=== PATIENT | male | born 1995 | race Caucasian/White ===

== ENCOUNTER 2023-05-21 23:08 | Inpatient (IN) | payer OTHER, SELFPAY ==
--- NOTE | ~2023-05-21 | CT_ITS ---
EXAMINATION: CT abdomen pelvis w con DATE: 05/22/2023 04:10 INDICATION: Pancreatitis. TECHNIQUE: Computed tomography (CT) of the abdomen and pelvis was performed with 100 mL Omnipaque 350 intravenous contrast. Automated exposure control and iterative reconstruction technique were employe d. The dose-length product was 1650.01 mGy-cm. COMPARISON: None. FINDINGS: The visualized portions of the lung bases demonstrate mild atelectasis. No pleural effusion . The heart size is normal. No pericardial effusion. The liver, gallbladder, spleen, adrenal glands, and kidneys are normal. There is fat stranding around the pancreas, consistent with acute interstitia l pancreatitis. There are no dilated loops of bowel. There are changes of appendectomy. There are no pathologically enlarged lymph nodes. There is a small volume of pelvic ascites. There is mild thoraci c and lumbar spondylosis. There are chronic bilateral L3 pars defects. IMPRESSION: 1. Acute interstitial pancreatitis. 2. Small volume of pelvic ascites. Reviewed, dictated and finalized at location [facility].
--- NOTE | 2023-05-21 23:10 | ECG_ITS ---
Measurements Intervals [place] Rate: 113 P: 48 OR: 178 QRS: 48 QRSD: 90 T: 59 QT: 295 QTc: 405 Interpretive Statements SINUS TACHYCARDIA BASELINE ARTIFACT- I, II ABNORMAL ECG NO PREVIOUS ECG AVAILABLE FOR COMPARISON Electronically Signed On 05-22-2023 8:02:19 CDT by Bird Whitlock D.O.
[2023-05-21 23:11] VITALS: BP 131/71; PULSE 118; RESP 14; TEMP 36.4; O2SAT 100
[2023-05-22] VITALS (7 sets, daily range): BP systolic 105–129; BP diastolic 54–65; PULSE 85–107; RESP 16–18; TEMP 36.1; O2SAT 98–100; BMI 35.3
[2023-05-22] MEDS: ACETAMINOPHEN 500 MG TABLET 1000 MG PO (02:11)
[2023-05-22] MEDS: MAG HYDROX/AL HYDROX/SIMETH 30 ML UDC PO (02:11)
[2023-05-22] MEDS: SODIUM CHLORIDE 0.9% IV 2,000 ML 999 ML IV CONT (02:11)
[2023-05-22] MEDS: FAMOTIDINE 20 MG/2 ML VIAL IV PUSH (02:12)
[2023-05-22] MEDS: ONDANSETRON INJ 4 MG/2 ML VIAL IV PUSH (02:12)
[2023-05-22] MEDS: KETOROLAC 15 MG/ML VIAL (*BKC) IV PUSH (02:13)
[2023-05-22 02:25] LABS: Basophils Percent Auto 0.3 % (0.2-1.2); Eosinophils Absolute Auto 0.5 K/mm3 (0-0.3); Eosinophils Percent Auto 4.1 % (0-4.4); Hemoglobin 15.3 g/dL (14.0-18.0); Immature Granulocyte Absolute 0.04 K/mm3 (0.00-0.031); Immature Granulocyte Percent A 0.3 % (0-0.5); Lymphocytes Absolute Auto 2.59 K/mm3 (0.9-3.2); Lymphocytes Percent Auto 20.8 % (18.3-44.2); Mean Corpuscular HGB Conc 31.9 g/dl (32-36); Mean Corpuscular Hemoglobin 29.2 pg (26-34); Mean Corpuscular Volume 91.6 fl (80-100); Mean Platelet Volume 9.6 fl (7.4-10.4); Monocytes Absolute Auto 0.7 K/mm3 (0.1-0.6); Monocytes Percent Auto 5.4 % (2.6-8.5); Neutrophils Absolute Auto 8.6 K/mm3 (1.3-6.7); Neutrophils Percent Auto 69.1 % (45.5-73.1); Platelet Count Result 408 k/mm3 (150-375); Red Blood Count 5.24 M/mm3 (4.6-6.20); Red Cell Distribution Width 13.4 % (11.5-14.5); White Blood Count 12.5 K/mm3 (4.5-10.0)
[2023-05-22 02:41] LABS: Alanine Aminotransferase 297 U/L (6-50); Albumin Level 4.5 g/dL (3.5-5.1); Alkaline Phosphatase 169 U/L (38-126); Anion Gap 6 mmol/L (8-16); Aspartate Amino Transferase 44 U/L (17-59); Bilirubin,Total 0.7 mg/dL (0.2-1.3); Blood Urea Nitrogen 21 mg/dL (9-20); Calcium 9.2 mg/dL (8.4-10.2); Carbon Dioxide 30 mmol/L (22-30); Chloride 102 mmol/L (98-107); Estimated CRCL calculation 157 ml/min; Estimated Glomerular Filt Rate > 60; Glucose 135 mg/dL (65-110); Potassium 4.1 mmol/L (3.4-5.0); Sodium 138 mmol/L (137-145)
[2023-05-22 02:45] LABS: Lipase 2432 U/L (23-300)
--- NOTE | 2023-05-22 03:03 | ED.GENADULT ---
HPI - General Adult General Chief complaint: Abdominal Pain Stated complaint: epigastric pain Time Seen by Provider: 05/22/23 01:16 History of Present Illness HPI narrative: this is a 27-year-old male presenting ED with chief complaint of abdominal pain. Patient says he has been having 3 days of epigastric abdominal pain that radiates into his chest. He describes as a stabbing pain that is 10 out 10 intensity and constant. He says he felt this before several years ago he was diagnosed with gallstone pancreatitis at an outside hospital but declined any surgeries. Patient has had multiple episodes of nausea and vomiting. He denies fever chills chest pain difficulty breathing or urinary symptoms. Last bowel movement was earlier today. Related Data Allergies Allergy/AdvReac Type Severity Reaction Status Date / Time No Known Drug Allergies Allergy Mild Verified 11/26/10 23:46 [facility] Past Medical History Medical History Appendicitis Methamphetamine use Pancreatitis Exam Narrative: APPEARANCE: No apparent distress. Head: atraumatic. EYES: EOMI, NOSE: Atraumatic NECK: Trachea midline RESPIRATORY: No increased rate of breathing CARDIOVASCULAR: RRR, ABDOMINAL: Tenderness to palpation in the epigastric area without guarding or rebound. Point of care right upper quadrant ultrasound revealed a depressed gallbladder with negative sonographic Petty's. MUSCULOSKELETAl: No obvious deformities NEURO: Alert. Moving 4/4 extremities SKIN:: Warm, dry. Normal color PSYCHIATRIC: Normal affect Course Vital Signs Vital signs: Vital Signs Temperature 97.6 F 05/21/23 23:11 Pulse Rate 118 H 05/21/23 23:11 Respiratory Rate 14 05/21/23 23:11 Blood Pressure 131/71 05/21/23 23:11 Pulse Oximetry 100 05/21/23 23:11 Oxygen Delivery Room Air 05/21/23 23:11 Temperature 97.6 F 05/21/23 23:11 Pulse Rate 118 H 05/21/23 23:11 Respiratory Rate 14 05/21/23 23:11 Blood Pressure 131/71 05/21/23 23:11 Pulse Oximetry 100 05/21/23 23:11 Oxygen Delivery Room Air 05/21/23 23:11 Medical Decision Making MDM Narrative Medical decision making narrative: -Course: 27-year-old male with history of pancreatitis presenting with epigastric pain. Lab work was significant for an elevated lipase, ALT and alk-phos. No US available overnight. CT abdomen/pelvis has been taken and is pending final read. Patient will be admitted to the hospital for further management. 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 -Hx from independent Sources: girlfriend at bedside -Independent interpretation of studies: white count 12.5. AST 44 ALT 297, alk phos 169, lipase 2400 Independent EKG interpretation: Rhythm [sinus], Rate 113, [place] -[normal], [place] -[normal], QRS [narrow], QTC [normal], T waves -[negative for concerning inversions], ST Segments - [Negative for concerning elevations] Final interpretations: [Normal Sinus Rhythm] -Discussion of Management/Consultants: Josh - Hospitalist -Interventions: 2 L normal saline, Pepcid, Zofran, Maalox, Dilaudid, Toradol, Tylenol, 200 cc normal saline maintenance -Shared decision making / Disposition: admitted Vital Signs Vital Signs: Vital Signs Temperature 97.6 F 05/21/23 23:11 Pulse Rate 118 H 05/21/23 23:11 Respiratory Rate 14 05/21/23 23:11 Blood Pressure 131/71 05/21/23 23:11 Pulse Oximetry 100 05/21/23 23:11 Oxygen Delivery Room Air 05/21/23 23:11 Temperature 97.6 F 05/21/23 23:11 Pulse Rate 118 H 05/21/23 23:11 Respiratory Rate 14 05/21/23 23:11 Blood Pressure 131/71 05/21/23 23:11 Pulse Oximetry 100 05/21/23 23:11 Ox
[2023-05-22] MEDS: HYDROmorphone HCL INJ (*CRX) 1 MG/ML SYR 0.5 MG IV PUSH (03:13)
--- NOTE | 2023-05-22 05:15 | ADMGEN ---
This patient, Jerod Pruett, was admitted to 3 Med Surg Room 303-01. Patient/family oriented to hospital policies and general routines including ID bracelet, bed and alarms, visiting hours, pain management, procedures, bathroom and other care routines, personal items, smoking policy, room service/diet, and visiting hours. Information on how to activate the Rapid Response Team has been discussed. Patient/Family are encouraged to report perceived risks to care and to ask questions if they do not understand what they are told or what they should do.
[2023-05-22] MEDS: SODIUM CHLORIDE 0.9% IV 1,000 ML 200 ML IV CONT (05:18)
[2023-05-22 05:21] LABS: Barbiturate Screen Urine Negative (Negative); Benzodiazepines Screen Urine Negative (Negative)
[2023-05-22 05:22] LABS: Appearance Urine Clear (Clear); Bacteria Urine None Seen /hpf; Bilirubin Urine Negative (Negative); Blood Urine Negative (Negative); Color Urine Yellow (Yellow); Glucose Urine UA Negative (Negative); Ketones Urine Negative (Negative); Leukocyte Esterase Ur Negative LEU/UL (Negative); Need Manual Microscopic Reviewed; Nitrate Urine Negative (Negative); Non Pathogenic Casts 0-2; Protein Urine 1+ mg/dL (Negative); RBC Urine 0-2 /hpf (0-2); Squamous Epithelial Cell Urine None seen /hpf (Few); WBC Urine 0-5 /hpf
[2023-05-22 05:28] LABS: Add Urine Microscopic? YES; Specific Grav Ur 1.093 (1.001-1.035)
[2023-05-22 05:33] LABS: Cannabinoid Screen Urine Negative (Negative); Cocaine Screen Urine Negative (Negative); Methadone Screen Urine Negative (Negative); Opiate Screen Urine Positive (Negative); Phencyclidine Screen Urine Negative (Negative)
[2023-05-22 06:02] LABS: Amphetamine Screen Urine Positive (Negative)
--- NOTE | 2023-05-22 14:49 | PCCCNOTE ---
On 05/22/23, the student, Earlene Gregorio, provided care and completed [facility] documentation on this patient. I have reviewed the student's documentation and agree with the findings.
--- NOTE | 2023-05-22 15:09 | PM.SD2 ---
Same Day Admit/Disch: HPI History of Present Illness Chief complaint: Pancreatitis Narrative: Jerod Pruett is a 27 year old male with hx of gallstone pancreatitis who is presenting with a 3 day hx of abd pain. he reported n/v to the ER when he was admitted. he says the abd pain radiates into his lower chest. he denies fevers/chills. He has had this before. He previous declined surgery at an OSH several years ago for gallstone pancreatitis. He reports a hx of at least once a week meth use smoking, and smoking cigarettes. 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 His Lipase was elevated to [address] scan also showed pancreatitis. his lft's were also elevated. He was given 2L NS in the ER and symptomatic medication management. on evaluation he says he wants to leave AMA. He also reports he will eat at home and monitor the foods causing pancreatitis. [facility] Past Medical History Medical History Appendicitis Methamphetamine use Pancreatitis Family History Family History (Updated 05/22/23 @ 05:39 by Jeimy Orta RN) Mother Diabetes mellitus Social History Social History Smoking packs per day: 1 Smoking cigarettes per day: 20.0 Years smoked: 11 Smoking pack-years: 11.00 Smoking status: Current every day smoker Tobacco type: cigarettes Alcohol intake: never Substance use: never Lack of Transportation: YES Lack of Food: Never True Current Housing: I Have Housing Concerned About Future Housing: No Difficulty Paying Gas/Electric Bills: No Difficulty Paying for Meds: No Currently Unemployed: YES Education: High School Diploma/GED Difficulty w/ Childcare or Family Care: No Spiritual care concerns: No Same Day Admit/Disch: Med Pre-admit Medications Home Medications Medication Instructions Recorded Confirmed Type No Home Medications 05/22/23 05/22/23 History Review of Systems Review of Systems no additional Exam Narrative: ? APPEARANCE: No apparent distress. Head: atraumatic. EYES:? EOMI, NOSE: Atraumatic NECK: Trachea midline RESPIRATORY: No increased rate of breathing CARDIOVASCULAR: RRR, ABDOMINAL: ? now no abd pain, no ttp, no rebound guarding, bs hypoactive though. MUSCULOSKELETAl: No obvious deformities NEURO: Alert. Moving 4/4 extremities SKIN:: Warm, dry. Normal color PSYCHIATRIC: Normal affect DS: Data Data Completed and Pending Labs on day of discharge: Labs from last 24 hours 05/22/23 05/22/23 04:45 02:20 WBC 12.5 H RBC 5.24 Hgb 15.3 Hct 48.0 MCV 91.6 MCH 29.2 MCHC 31.9 L RDW 13.4 Plt Count 408 H MPV 9.6 Immature Gran % (Auto) 0.3 Neut % (Auto) 69.1 Lymph % (Auto) 20.8 [place] % (Auto) 5.4 Eos % (Auto) 4.1 Baso % (Auto) 0.3 Lymph # (Auto) 2.59 [place] # (Auto) 0.7 H Eos # (Auto) 0.5 H Baso # (Auto) 0.0 Abs Immat Gran (auto) 0.04 H Absolute Neuts (auto) 8.6 H Absolute Nucleated RBC 0.0 Nucleated RBC % 0.0 Sodium 138 Potassium 4.1 Chloride 102 Carbon Dioxide 30 Anion Gap 6 L BUN 21 H Creatinine 0.90 Estim Creat Clear Calc 157 Estimated GFR > 60 Glucose 135 H Calcium 9.2 Total Bilirubin 0.7 AST 44 ALT 297 H Alkaline Phosphatase 169 H Total Protein 8.0 Albumin 4.5 Lipase 2432 H Urine Color Yellow Urine Appearance Clear Urine pH 7.0 Ur Specific [place] 1.093 H Urine Protein 1+ H Urine Glucose (UA) Negative Urine Ketones Negative Ur Blood (Man) Negative Urine Nitrate Negative Urine Bilirubin Negative Urine Urobilinogen 1.0 Add Ur Microanalysis Reviewed Leukocyte Esterase Rfl Negative Urine RBC 0-2 Urine WBC 0-5 Ur Squamous Epith Cells None seen Urine Bacteria None seen Urine Casts 0-2 Urine Opiates Screen Positive A Urine Methadone Screen N
== END 2023-05-22 15:57 | disposition home or self-care (01) | DRG 282 ==
LOC: ANHED 05-22 03:34 → ANH3MEDSUR 05-22 13:36
PROVIDERS: Admitting Provider Internal Medicine; Emergency Provider Emergency Medicine; PCP Pediatrics; Visit Provider Internal Medicine
DX: K85.90 Acute pancreatitis without necrosis or infection, unspecified (principal); F17.210 Nicotine dependence, cigarettes, uncomplicated
CPT/HCPCS: 36415; 74177; 80053; 80307; 81001; 83690; 85025; 93005; 96361; 96374; 96375; 99285; A9270; J1170; J1885; J2405; J7030; Q9967

== ENCOUNTER 2023-06-14 12:26 | Emergency (ER) | payer OTHER, SELFPAY ==
--- NOTE | ~2023-06-14 | CT_ITS ---
EXAMINATION: CT abdomen pelvis w con DATE: 06/14/2023 16:32 INDICATION: Epigastric abdominal pain, nausea and vomiting. History of pancreatitis. TECHNIQUE: Computed tomography (CT) of the abdomen and pelvis was performed with 100 CC Omnipaque 350 intravenous contrast. Automated exposure control and iterative reconstruction technique were employe d. Exam dose: 1608.39 mGy-cm total exam DLP. COMPARISON: 05/22/2023 CT abdomen pelvis FINDINGS: Minimal dependent atelectasis in the lower lobes. Normal heart size. No pericardial or pleu ral effusion. Small sliding hiatal hernia. Diffuse hepatic steatosis. No hepatic space-occupying mass lesion. Normal splenic size. There is increased peripancreatic fat stranding. There is periportal, pericholecystic and prominent d uodenal fluid as well as mild fluid along the left and right anterior pararenal fascia, consistent wi th acute interstitial pancreatitis. Small fluid collection is noted in the dependent pelvis as well. Normal morphology of the adrenal glands. The kidneys are unremarkable. No urinary tract calculus or hydroureteronephrosis. The urinary bladder is unremarkable. Prostate gland is unremarkable. Normal caliber of the abdominal aorta. No intraperitoneal or retroperitoneal or pelvic mass lesion or adenopathy or ascites is detected. Status post appendectomy. No bowel obstruction, bowel wall thickening, pneumatosis or intraperitoneal free air. Bilateral L3 pars interarticularis defects are again noted, without any associated spondylolisthesis. IMPRESSION: Increased peripancreatic inflammatory changes and fluid since 05/22/2023; findings are co nsistent with acute interstitial pancreatitis Reviewed, dictated and finalized at Location [facility]. Reviewed, dictated and finalized at location A. E HANGER IMPRESSION: Increased peripancreatic inflammatory changes and fluid since 05/22; findings are consistent with acute interstitial pancreatitis
[2023-06-14 12:39] VITALS: BP 113/76; PULSE 96; RESP 20; TEMP 36; O2SAT 100
[2023-06-14 12:58] VITALS: BP 132/68; PULSE 85; RESP 13; O2SAT 100
[2023-06-14 14:38] LABS: Basophils Percent Auto 0.3 % (0.2-1.2); Eosinophils Absolute Auto 0.1 K/mm3 (0-0.3); Eosinophils Percent Auto 1.3 % (0-4.4); Hematocrit 49.2 % (42.0-52.0); Hemoglobin 16.1 g/dL (14.0-18.0); Immature Granulocyte Absolute 0.03 K/mm3 (0.00-0.031); Immature Granulocyte Percent A 0.3 % (0-0.5); Lymphocytes Absolute Auto 1.33 K/mm3 (0.9-3.2); Lymphocytes Percent Auto 12.6 % (18.3-44.2); Mean Corpuscular HGB Conc 32.7 g/dl (32-36); Mean Corpuscular Hemoglobin 29.5 pg (26-34); Mean Corpuscular Volume 90.1 fl (80-100); Mean Platelet Volume 9.5 fl (7.4-10.4); Monocytes Absolute Auto 0.6 K/mm3 (0.1-0.6); Monocytes Percent Auto 5.5 % (2.6-8.5); Neutrophils Absolute Auto 8.5 K/mm3 (1.3-6.7); Platelet Count Result 284 k/mm3 (150-375); Red Blood Count 5.46 M/mm3 (4.6-6.20); White Blood Count 10.6 K/mm3 (4.5-10.0)
--- NOTE | 2023-06-14 14:40 | ED.ABDPAIN ---
HPI - Abdominal Pain General Chief Complaint: Abdominal Pain Stated Complaint: abdominal pain Time Seen by Provider: 06/14/23 13:09 Source: patient and old records reviewed Mode of arrival: ambulatory Limitations: no limitations History of Present Illness HPI narrative: Patient is a 27 y/o male who presents to the ED with c/o epigastric abdominal pain. Patient reports pain began this morning. He states he felt fine yesterday. Pain is in his epigastric abdomen, feels consistent with previous episodes of pancreatitis. Patient reports history of gallstones/gallbladder issues, but has not had surgical removal. He was admitted to the hospital here 2 weeks ago for similar symptoms but left AMA. Patient has not taken anything for pain today. He reports nausea and vomiting, denies diarrhea, constipation, rectal bleeding, fevers, urinary complaints. Patient denies alcohol use. Related Data Home Medications Medication Instructions Recorded Confirmed No Home Medications 05/22/23 05/22/23 Allergies Allergy/AdvReac Type Severity Reaction Status Date / Time No Known Allergies Allergy Verified 06/14/23 12:57 Review of Systems Review of Systems: CONSTITUTIONAL: Denies fever, chills, or sweats. CARDIOVASCULAR: Denies chest pain. RESPIRATORY: Denies dyspnea. GASTROINTESTINAL: See HPI. GENITOURINARY: Denies dysuria or hematuria. NEUROLOGIC: Denies headache, numbness, or weakness. All systems reviewed & are unremarkable except as noted in HPI and below PMFSH Past Medical History Medical History Appendicitis Methamphetamine use Pancreatitis Family History Family History Mother Diabetes mellitus Social History Social History Smoking packs per day: 1 Smoking cigarettes per day: 20.0 Years smoked: 11 Smoking pack-years: 11.00 Smoking status: Current every day smoker Tobacco type: cigarettes Alcohol intake: never Substance use: never Lack of Transportation: YES Lack of Food: Never True Current Housing: I Have Housing Concerned About Future Housing: No Difficulty Paying Gas/Electric Bills: No Difficulty Paying for Meds: No Currently Unemployed: YES Education: High School Diploma/GED Difficulty w/ Childcare or Family Care: No Spiritual care concerns: No Exam Narrative: GENERAL: Mildly uncomfortable appearing, obese, non-toxic, in no acute distress. HEAD: Normocephalic, atraumatic. NECK: Supple. No adenopathy, no masses. RESPIRATORY: Airway patent, respirations nonlabored. Clear to auscultation bilaterally, no rales, rhonchi, wheezing. CARDIOVASCULAR: Regular rate and rhythm without murmurs, rubs, or gallops. Radial pulses 2+ and equal bilaterally. ABDOMINAL: Soft, TTP in epigastric region and RUQ. Nondistended, no hepatosplenomegaly. Normoactive BS. MUSCULOSKELETAL: Moves all extremities. No gross deformities. SKIN: Warm, dry, normal color. No rashes. NEURO: A&O X3. Speech clear. Cranial nerves II-XII grossly intact. Steady gait. No ataxic movements. PSYCHIATRIC: Appropriate mood and affect. Normal interaction. Course Vital Signs Vital signs: Vital Signs Temperature 96.8 F L 06/14/23 12:39 Pulse Rate 96 06/14/23 12:39 Respiratory Rate 20 06/14/23 12:39 Blood Pressure 113/76 06/14/23 12:39 Pulse Oximetry 100 06/14/23 12:39 Oxygen Delivery Room Air 06/14/23 12:39 Temperature 96.8 F L 06/14/23 12:39 Pulse Rate 92 06/14/23 16:22 Respiratory Rate 11 L 06/14/23 16:22 Blood Pressure 119/71 06/14/23 16:22 Pulse Oximetry 100 06/14/23 16:22 Oxygen Delivery Room Air 06/14/23 12:39 MDM - Abdominal Pain MDM Narrative Medical decision making narrative: Patient presented to ED with 1 day history of epigastric abdominal pain, N/V, recent pancreatiti
[2023-06-14 14:55] LABS: Alanine Aminotransferase 333 U/L (6-50); Albumin Level 4.7 g/dL (3.5-5.1); Alkaline Phosphatase 97 U/L (38-126); Anion Gap 15 mmol/L (8-16); Aspartate Amino Transferase 478 U/L (17-59); Bilirubin,Total 2.8 mg/dL (0.2-1.3); Blood Urea Nitrogen 20 mg/dL (9-20); Calcium 9.9 mg/dL (8.4-10.2); Carbon Dioxide 26 mmol/L (22-30); Chloride 103 mmol/L (98-107); Estimated CRCL calculation 137 ml/min; Estimated Glomerular Filt Rate > 60; Glucose 126 mg/dL (65-110); Sodium 144 mmol/L (137-145)
[2023-06-14 15:08] VITALS: BP 117/75; PULSE 82; RESP 14; O2SAT 100
[2023-06-14 15:15] LABS: Triglycerides 80 mg/dL (<150)
[2023-06-14 15:24] LABS: Appearance Urine Cloudy (Clear); Bacteria Urine None Seen /hpf; Bilirubin Urine 1+ (Negative); Blood Urine Negative (Negative); Color Urine Dark Yellow (Yellow); Glucose Urine UA Negative (Negative); Ketones Urine Negative (Negative); Leukocyte Esterase Ur Negative LEU/UL (Negative); Nitrate Urine Negative (Negative); Non Pathogenic Casts 0-2; Protein Urine Negative (Negative); RBC Urine 0-2 /hpf (0-2); Specific Grav Ur 1.023 (1.001-1.035); Squamous Epithelial Cell Urine None seen /hpf (Few); WBC Urine 0-5 /hpf; pH Urine 6.5 (5.0-9.0)
[2023-06-14 15:28] LABS: Add Urine Microscopic? YES
[2023-06-14 15:33] LABS: Lipase 15576 U/L (23-300)
[2023-06-14] MEDS: ONDANSETRON INJ 4 MG/2 ML VIAL IV PUSH (16:17)
[2023-06-14] MEDS: MORPHINE SULFATE (*CRX) 4 MG/ML INJ IV PUSH (16:18)
[2023-06-14] MEDS: SODIUM CHLORIDE 0.9% IV 1,000 ML 999 ML IV CONT ×2 (16:20→16:21)
[2023-06-14] MEDS: PANTOPRAZOLE SODIUM IV 40 MG VIAL IV PUSH (16:20)
[2023-06-14 16:22] VITALS: BP 119/71; PULSE 92; RESP 11; O2SAT 100
[2023-06-14 17:27] LABS: Ethanol < 10 mg/dL (<10)
== END 2023-06-14 17:32 | disposition left against medical advice (07) ==
PROVIDERS: Emergency Medicine; Emergency Provider Physician Assistant
DX: K85.90 Acute pancreatitis without necrosis or infection, unspecified (principal); E80.6 Other disorders of bilirubin metabolism; R74.01 Elevation of levels of liver transaminase levels; F17.210 Nicotine dependence, cigarettes, uncomplicated
CPT/HCPCS: 36415; 74177; 80053; 80307; 81001; 83690; 84478; 85025; 96361; 96374; 96375; 99284; C9113; J2270; J2405; J7030; Q9967

== ENCOUNTER 2023-06-26 08:52 | Inpatient (IN) | payer OTHER, SELFPAY ==
--- NOTE | ~2023-06-26 | MR_ITS ---
EXAMINATION: MR MRCP wo/w con/w 3D wo ind DATE: 06/27/2023 12:52 INDICATION: Pancreatitis. TECHNIQUE: Magnetic resonance imaging (MRI) of the abdomen was performed without and with 20 mL Multi Sarath intravenous contrast. Sequences included coronal T2-weighted FS FSE, coronal T2-weighted FSE, a xial T1-weighted LAVA, coronal FS FIESTA, axial dual-echo T1-weighted SPGR, coronal lava-FLEX, sagitt al T2-weighted FSE, axial T2-weighted FSE, and axial DWI. Thick-slab T2-weighted FSE images were obta ined for magnetic resonance cholangiopancreatography (MRCP). Maximum intensity projection 3-D reconst ructions of the volumetric data were created by the technologist. Postcontrast sequences included cor onal LAVA-flex and time course of axial T1-weighted LAVA. COMPARISON: Abdomen ultrasound 06/26/2023, CT abdomen and pelvis 06/26/2023 FINDINGS: ABDOMEN MRI: There is diffuse hepatic steatosis. The gallbladder is normal in size. There are gallsto sachin in the gallbladder. There is fat stranding in the retroperitoneum centered around the pancreas, c onsistent with acute interstitial pancreatitis. The spleen, adrenal glands, and kidneys are normal. T here is a small volume of ascites. There are no pathologically enlarged lymph nodes. ABDOMEN MRCP: The common duct is normal and measures 6 mm. No choledocholithiasis. IMPRESSION: 1. Normal common duct. No choledocholithiasis. 2. Acute interstitial pancreatitis. 3. Cholelithiasis. 4. Small volume of ascites. 5. Diffuse hepatic steatosis. Reviewed, dictated and finalized at location E. WORKER
--- NOTE | ~2023-06-26 | US_ITS ---
US abdomen limited INDICATION: Pancreatitis PROCEDURE: Realtime right upper abdominal ultrasound. COMPARISON: No prior studies for comparison. FINDINGS: The pancreas is normal without focal mass or pancreatic ductal dilation. Liver echotexture is increased, consistent with fatty infiltration. There is normal directional flow in the portal ve in. There are gallstones Common bile duct measures 6 mm. No sonographic Petty's sign. IMPRESSION: 1: Cholelithiasis. 2: Hepatic steatosis. Reviewed, dictated and finalized at location B. HT DECK OFFICER
--- NOTE | ~2023-06-26 | CT_ITS ---
EXAMINATION: CT abdomen pelvis w con DATE: 06/26/2023 10:01 INDICATION: Upper abdominal pain TECHNIQUE: Computed tomography (CT) of the abdomen and pelvis was performed with 100 cc Omnipaque 350 intravenous contrast. The dose-length product was 1597.62 mGy-cm. Automated exposure control and ite rative reconstruction technique were employed. COMPARISON: CT dated 06/14/2023 FINDINGS: Lung bases unremarkable. Heart size normal. No significant pleural or pericardial effusion. Fatty infiltration of the liver. The spleen, adrenal glands and kidneys are unremarkable. No signifi cant vascular abnormality. No lymphadenopathy. Nonobstructive bowel pattern. The pancreas is thickened with surrounding inflammatory changes, consistent with acute pancreatitis. No evidence for abscess or pseudocyst formation. Gallbladder is present. No significant biliary dilat ation. IMPRESSION: 1. Acute uncomplicated pancreatitis. Reviewed, dictated and finalized at location B. N PERSON
[2023-06-26 08:58] VITALS: BP 130/77; PULSE 89; RESP 20; TEMP 36.7; O2SAT 100
--- NOTE | 2023-06-26 09:11 | ED.ABDPAIN ---
HPI - Abdominal Pain General Chief Complaint: Abdominal Pain Stated Complaint: pancreas is acting up Time Seen by Provider: 06/26/23 08:57 History of Present Illness HPI narrative: 27-year-old male history of pancreatitis presenting to the ED for evaluation of worsening epigastric pain. Patient reports years ago he did have issues with his gallbladder but still has his gallbladder. Patient was seen in the ED few weeks ago and diagnosed with pancreatitis but patient preferred to leave AMA. Patient has not had follow-up with GI. Patient states over the last few days he has had worsening pain nausea and vomiting. Patient states he has not been drinking alcohol. patient states he will not leave AMA. Related Data Home Medications Medication Instructions Recorded Confirmed No Home Medications 05/22/23 06/26/23 Allergies Allergy/AdvReac Type Severity Reaction Status Date / Time No Known Allergies Allergy Verified 06/26/23 09:03 Review of Systems Review of Systems: All systems reviewed & are unremarkable except as noted in HPI and below PMFSH Past Medical History Medical History Appendicitis Methamphetamine use Pancreatitis Family History Family History Mother Diabetes mellitus Social History Social History Smoking packs per day: 1 Smoking cigarettes per day: 20.0 Years smoked: 11 Smoking pack-years: 11.00 Smoking status: Current every day smoker Tobacco type: cigarettes Alcohol intake: never Substance use: never Lack of Transportation: YES Lack of Food: Never True Current Housing: I Have Housing Concerned About Future Housing: No Difficulty Paying Gas/Electric Bills: No Difficulty Paying for Meds: No Currently Unemployed: YES Education: High School Diploma/GED Difficulty w/ Childcare or Family Care: No Spiritual care concerns: No Exam Narrative: APPEARANCE: Well appearing, no pain, no distress, well-nourished. HEAD: normocephalic, atraumatic. EYES: PERRLA/EOMI, conjunctivae clear. NOSE: Normal no drainage EARS:TMS clear with good light reflex. THROAT: Pharynx clear, no exudate. NECK: Supple. No adenopathy, no masses. RESPIRATORY: Airway patent, respirations nonlabored. Clear to auscultation bilaterally, no rales, rhonchi, wheezing. CARDIOVASCULAR: Regular rate and rhythm without murmurs rubs or gallops. ABDOMINAL: Soft, epigastric tenderness to palpation MUSCULOSKELETAL: Moves all extremities. Strength/ROM intact, No edema, No calf tenderness. NEURO: Alert. Cranial nerves II through XII intact. Grossly intact SKIN: Warm, dry. Normal Color Course Course Emergency Course: 27-year-old male presenting the ED for evaluation epigastric pain that feels similar to his previous pancreatitis. Patient's lipase was significantly elevated indicative of pancreatitis. CT scan did show acute uncomplicated pancreatitis. Ultrasound was ordered to evaluate for obstructing gallstone. Patient does have evidence of cholelithiasis but no evidence of acute cholecystitis or obstruction. I discussed the case with the hospitalist and patient was accepted for admission. Patient was updated on the results of his workup patient was comfortable with plan for admission. Patient was made NPO and IV fluids were ordered. Patient was resting comfortably at time of admission. Vital Signs Vital signs: Vital Signs Temperature 98.1 F 06/26/23 08:58 Pulse Rate 89 06/26/23 08:58 Respiratory Rate 20 06/26/23 08:58 Blood Pressure 130/77 06/26/23 08:58 Pulse Oximetry 100 06/26/23 08:58 Oxygen Delivery Room Air 06/26/23 08:58 Temperature 98.1 F 06/26/23 08:58 Pulse Rate 80 06/26/23 14:48 Respiratory Rate 14 06/26/23 14:48 Blood Pressure 100/50 L 06/26/23 14:48 Pulse
[2023-06-26 09:18] LABS: Basophils Percent Auto 0.3 % (0.2-1.2); Eosinophils Absolute Auto 0.1 K/mm3 (0-0.3); Eosinophils Percent Auto 1.4 % (0-4.4); Hematocrit 50.2 % (42.0-52.0); Hemoglobin 16.4 g/dL (14.0-18.0); Immature Granulocyte Absolute 0.02 K/mm3 (0.00-0.031); Immature Granulocyte Percent A 0.2 % (0-0.5); Lymphocytes Absolute Auto 1.67 K/mm3 (0.9-3.2); Lymphocytes Percent Auto 19.2 % (18.3-44.2); Mean Corpuscular HGB Conc 32.7 g/dl (32-36); Mean Corpuscular Hemoglobin 29.5 pg (26-34); Mean Corpuscular Volume 90.3 fl (80-100); Mean Platelet Volume 9.4 fl (7.4-10.4); Monocytes Absolute Auto 0.5 K/mm3 (0.1-0.6); Monocytes Percent Auto 5.3 % (2.6-8.5); Neutrophils Absolute Auto 6.4 K/mm3 (1.3-6.7); Neutrophils Percent Auto 73.6 % (45.5-73.1); Platelet Count Result 362 k/mm3 (150-375); Red Blood Count 5.56 M/mm3 (4.6-6.20); Red Cell Distribution Width 13.4 % (11.5-14.5); White Blood Count 8.7 K/mm3 (4.5-10.0)
[2023-06-26] MEDS: ONDANSETRON INJ 4 MG/2 ML VIAL IV PUSH (09:18)
[2023-06-26] MEDS: HYDROmorphone HCL INJ (*CRX) 1 MG/ML SYR IV PUSH (09:18)
[2023-06-26] MEDS: SODIUM CHLORIDE 0.9% IV 1,000 ML 999 ML IV CONT ×2 (09:18→12:30)
[2023-06-26 09:24] LABS: Appearance Urine Clear (Clear); Bilirubin Urine Negative (Negative); Blood Urine Negative (Negative); Color Urine Yellow (Yellow); Glucose Urine UA Negative (Negative); Ketones Urine Negative (Negative); Leukocyte Esterase Ur Negative LEU/UL (Negative); Nitrate Urine Negative (Negative); Protein Urine Negative (Negative); Specific Grav Ur 1.013 (1.001-1.035); pH Urine 8.5 (5.0-9.0)
[2023-06-26 09:27] LABS: Add Urine Microscopic? NO
[2023-06-26 09:30] LABS: Alanine Aminotransferase 535 U/L (6-50); Alkaline Phosphatase 110 U/L (38-126); Anion Gap 12 mmol/L (8-16); Aspartate Amino Transferase 732 U/L (17-59); Bilirubin,Total 1.5 mg/dL (0.2-1.3); Blood Urea Nitrogen 18 mg/dL (9-20); Calcium 9.6 mg/dL (8.4-10.2); Carbon Dioxide 32 mmol/L (22-30); Chloride 98 mmol/L (98-107); Estimated CRCL calculation 182 ml/min; Estimated Glomerular Filt Rate > 60; Glucose 135 mg/dL (65-110); Potassium 4.4 mmol/L (3.4-5.0); Sodium 142 mmol/L (137-145)
[2023-06-26 09:40] LABS: Amphetamine Screen Urine Negative (Negative); Barbiturate Screen Urine Negative (Negative); Benzodiazepines Screen Urine Negative (Negative); Cannabinoid Screen Urine Negative (Negative); Cocaine Screen Urine Negative (Negative); Methadone Screen Urine Negative (Negative); Opiate Screen Urine Negative (Negative); Phencyclidine Screen Urine Negative (Negative)
[2023-06-26 10:15] LABS: Lipase 23886 U/L (23-300)
[2023-06-26 10:35] VITALS: BP 129/72; PULSE 77; RESP 16; O2SAT 99
--- NOTE | 2023-06-26 12:26 | PC.NURSE ---
Pt returned to H3
[2023-06-26 12:30] VITALS: BP 117/77; PULSE 79; RESP 14; O2SAT 100
[2023-06-26 14:48] VITALS: BP 100/50; PULSE 80; RESP 14; O2SAT 100
[2023-06-26 15:34] VITALS: BMI 36.0
--- NOTE | 2023-06-26 15:36 | ADMGEN ---
This patient, Jerod Pruett, was admitted to Virtual Bed 3rd Floor-2. Patient/family oriented to hospital policies and general routines including ID bracelet, bed and alarms, visiting hours, pain management, procedures, bathroom and other care routines, personal items, smoking policy, room service/diet, and visiting hours. Information on how to activate the Rapid Response Team has been discussed. Patient/Family are encouraged to report perceived risks to care and to ask questions if they do not understand what they are told or what they should do.
[2023-06-26] MEDS: HYDROmorphone HCL INJ (*CRX) 1 MG/ML SYR 0.5 MG IV PUSH ×2 (16:10→20:16)
[2023-06-26] MEDS: SODIUM CHLORIDE 0.9% IV 1,000 ML 125 ML IV CONT ×2 (16:11→23:36)
--- NOTE | 2023-06-26 20:15 | PM.IMHP ---
H&P: HPI History of Present Illness Date/Time: 06/26/23 20:15 Chief Complaint: Abdominal pain/n/v Narrative: 27-year-old male past medical history significant for tobacco dependence, amphetamine use presents to the emergency room due to sudden onset epigastric pain with radiation to the back with nausea vomiting unable to keep anything down had 10 episodes of vomiting x1 day duration. EXAMINATION: CT abdomen pelvis w con DATE: 06/26/2023 10:01 INDICATION: Upper abdominal pain TECHNIQUE: Computed tomography (CT) of the abdomen and pelvis was performed with 100 cc Omnipaque 350 intravenous contrast. The dose-length product was 1597.62 mGy-cm. Automated exposure control and iterative reconstruction technique were employed. COMPARISON: CT dated 06/14/2023 FINDINGS: Lung bases unremarkable. Heart size normal. No significant pleural or pericardial effusion. Fatty infiltration of the liver. The spleen, adrenal glands and kidneys are unremarkable. No significant vascular abnormality. No lymphadenopathy. Nonobstructive bowel pattern. The pancreas is thickened with surrounding inflammatory changes, consistent with acute pancreatitis. No evidence for abscess or pseudocyst formation. Gallbladder is present. No significant biliary dilatation. IMPRESSION: 1. Acute uncomplicated pancreatitis. US abdomen limited INDICATION: Pancreatitis PROCEDURE: Realtime right upper abdominal ultrasound. COMPARISON:? No prior studies for comparison. FINDINGS: The pancreas is normal without focal mass or pancreatic ductal dilation.? Liver echotexture is increased, consistent with fatty infiltration.? There is normal directional flow in the portal vein. There are gallstones? Common bile duct measures 6 mm.? No sonographic Petty's sign. IMPRESSION: 1: Cholelithiasis. 2:? Hepatic steatosis. Review of Systems Review of Systems: abdominal pain, n/v x 1 day, radiating to back Constitutional: Constitutional: Denies chills, Denies fever(s) and Denies night sweats Eyes: Eyes: Denies change in vision ENT: Denies dysphagia and Denies odynophagia Cardiovascular: Cardiovascular: Denies chest pain, Denies radiating jaw, neck or arm pain and Denies palpitations Respiratory: Respiratory: Denies cough and Denies dyspnea Gastrointestinal: Gastrointestinal: Reports abdominal pain, Denies melena, Denies hematochezia, Denies coffee ground emesis, Denies dyspepsia, Denies heartburn, Denies diarrhea, Reports nausea and Reports vomiting Genitourinary: Genitourinary: Denies dysuria Musculoskeletal: Musculoskeletal: Reports back pain Integumentary/Breasts: Skin/Breast: Denies rash Neurologic: Denies focal weakness and Denies Sensory deficit (Neuro) Psychiatric: Psychiatric: Reports no additional psychiatric complaints and Reports as per HPI Endocrine: Endocrine: Denies cold intolerance, Denies fatigue, Denies flushing, Denies heat intolerance, Denies polyphagia, Denies polydipsia and Denies palpitations Hematologic/Lymphatic: Hematologic/Lymphatic: Reports no additional hematologic/lymphatic complaints and Reports as per HPI Allergic/Immunologic: Allergic/Immunologic: Reports no additional allergic/immunologic complaints and Reports as per HPI PMFSH Past Medical History Medical History Appendicitis Methamphetamine use Pancreatitis Family History Family History Mother Diabetes mellitus Social History Social History Smoking packs per day: 1 Smoking cigarettes per day: 20.0 Years smoked: 11 Smoking pack-years: 11.00 Smoking status: Current every day smoker Tobacco type: cigarettes Alcohol intake: never Substance use: never Lack of Transportation: YES Lack of Food: Never True Current Housing: I Have Housing Concerned [place]
[2023-06-26 20:44] VITALS: BP 137/57; PULSE 91; RESP 18; TEMP 36.7; O2SAT 98
[2023-06-27] MEDS: DEXTROSE 5%/LACTATED RINGERS 1,000 ML 125 ML IV CONT ×2 (00:23→14:14)
[2023-06-27] MEDS: HYDROmorphone HCL INJ (*CRX) 1 MG/ML SYR 0.5 MG IV PUSH (04:37)
[2023-06-27 05:17] VITALS: BP 120/64; PULSE 97; RESP 18; TEMP 36.7; O2SAT 98
[2023-06-27 07:51] LABS: Basophils Percent Auto 0.2 % (0.2-1.2); Eosinophils Absolute Auto 0.6 K/mm3 (0-0.3); Eosinophils Percent Auto 7.6 % (0-4.4); Hemoglobin 15.3 g/dL (14.0-18.0); Immature Granulocyte Absolute 0.02 K/mm3 (0.00-0.031); Immature Granulocyte Percent A 0.2 % (0-0.5); Lymphocytes Absolute Auto 1.55 K/mm3 (0.9-3.2); Lymphocytes Percent Auto 18.3 % (18.3-44.2); Mean Corpuscular HGB Conc 32.6 g/dl (32-36); Mean Corpuscular Hemoglobin 29.2 pg (26-34); Mean Corpuscular Volume 89.7 fl (80-100); Mean Platelet Volume 9.3 fl (7.4-10.4); Monocytes Absolute Auto 0.4 K/mm3 (0.1-0.6); Monocytes Percent Auto 4.4 % (2.6-8.5); Neutrophils Absolute Auto 5.9 K/mm3 (1.3-6.7); Neutrophils Percent Auto 69.3 % (45.5-73.1); Platelet Count Result 282 k/mm3 (150-375); Red Blood Count 5.24 M/mm3 (4.6-6.20); Red Cell Distribution Width 13.5 % (11.5-14.5); White Blood Count 8.5 K/mm3 (4.5-10.0)
[2023-06-27 08:06] LABS: Anion Gap 7 mmol/L (8-16); Bilirubin,Total 0.9 mg/dL (0.2-1.3); Blood Urea Nitrogen 12 mg/dL (9-20); Calcium 8.8 mg/dL (8.4-10.2); Carbon Dioxide 27 mmol/L (22-30); Chloride 105 mmol/L (98-107); Cholesterol 171 mg/dL (0-200); Estimated CRCL calculation 182 ml/min; Estimated Glomerular Filt Rate > 60; Glucose 108 mg/dL (65-110); HDL Direct 36 mg/dL; Lipase 1021 U/L (23-300); Potassium 3.8 mmol/L (3.4-5.0); Sodium 139 mmol/L (137-145); Triglycerides 158 mg/dL (<150)
[2023-06-27 08:09] LABS: Prothrombin Time 13.8 Seconds (11.1-14.7)
[2023-06-27 08:10] LABS: Partial Thromboplastin Time 28.8 SECONDS (22.3-36.8)
[2023-06-27 08:13] LABS: LDL Cholesterol Direct 98 mg/dL
--- NOTE | 2023-06-27 10:40 | PM.CNGS ---
Assessment and Plan Assessment and plan (1) Pancreatitis: Code(s): K85.90 - Acute pancreatitis without necrosis or infection, unspecified Status: Acute Assessment and Plan: Patient presents with his third episode of pancreatitis in the past month. He refused treatment and left AMA the last two times, but is aware of the severity of this issue and is currently willing to stay and get it treated appropriately. CT scan of the abdomen and pelvis showed acute uncomplicated pancreatitis. Abdominal ultrasound showed cholelithiasis, hepatic steatosis. He also was noted to have elevated liver enzymes with a total bilirubin of 1.5 on admission. His bilirubin was even higher at 2.8 when he came into the ER about 2 weeks ago. The patient uses methamphetamines, but denies any alcohol use at all. His triglycerides are nearly normal at 158. He is not taking any home medications. It is likely that the etiology of his acute pancreatitis is biliary. GI has been consulted and ordered an MRCP today. Will await these results and any plans for the need of an ERCP. Discussed with the patient that since this is likely biliary in nature, it would be indicated to proceed with a laparoscopic cholecystectomy when his pancreatitis has resolved. His lipase is down to 1021 today and his abdominal pain has improved. We will continue to follow along to decipher timing of surgery depending on how he progresses and the MRCP results. I did go ahead and discuss the details of a laparoscopic cholecystectomy with the patient today. Description of the procedure, risks, benefits, expected outcomes, and expected recovery were discussed. We discussed the risks of bile leak and bile duct injury, liver/bowel injury, bleeding, and infection. Also discussed the possibility of having to convert to an open procedure if necessary. The patient understands and wishes to stay and get appropriate treatment. I discussed with him that surgery could possibly be done while he is admitted or he could potentially be brought back as an outpatient in the near future depending on how he does. (2) Cholelithiasis: Code(s): K80.20 - Calculus of gallbladder without cholecystitis without obstruction Status: Acute Assessment and Plan: Noted on ultrasound. No evidence of cholecystitis on any imaging. See plan above regarding cholecystectomy. (3) Transaminitis: Code(s): R74.01 - Elevation of levels of liver transaminase levels Status: Acute Assessment and Plan: LFTs elevated on this admission as well as on his previous labs from earlier this month during his last episodes of pancreatitis. Bilirubin was 1.5 yesterday and is down to 0.9 today. GI consulted, awaiting MRCP. (4) Tobacco dependence: Code(s): F17.200 - Nicotine dependence, unspecified, uncomplicated Status: Acute Assessment and Plan: Encouraged cessation. (5) Methamphetamine use: Code(s): F15.10 - Other stimulant abuse, uncomplicated Status: Acute Assessment and Plan: Encouraged cessation. He reports that his last use was 1 week ago. Plan I have discussed the patient's case and plan of care with Dr. Tee. Thank you for allowing us to see the patient in consultation and we will continue to follow along with you. History of Present Illness Consult details Consult date: 06/27/23 Reason for consult: other (Acute pancreatitis) Requesting physician: Pedrito Samuels MD Narrative: This is a 27-year-old man with a history of methamphetamine use and tobacco abuse, who we have been asked to see in surgical consultation for acute pancreatitis. The patient presented to the ER yesterday for the third time in about the past month for similar complaints. He reports upper abdominal pain and vomiting that began 2 nights ago. 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 He reports associated nausea and multiple episodes of vomiting. This felt similar to his previous 2
--- NOTE | 2023-06-27 12:51 | PC.NURSE ---
On 06/27/23, the student, [Pranav Gordillo], provided care and completed [facility] documentation on this patient. I have reviewed the student's documentation and agree with the findings.
[2023-06-27 13:00] VITALS: BP 122/75; PULSE 98; RESP 16; TEMP 36.7; O2SAT 98
--- NOTE | 2023-06-27 15:13 | WPDGICN ---
Assessment and Plan Assessment and plan (1) Pancreatitis: Code(s): K85.90 - Acute pancreatitis without necrosis or infection, unspecified Status: Acute Assessment and Plan: He has had 3 episodes of pancreatitis for which she has been seen in our emergency room beginning May 22. He has never had this in the past. He has no history of liver disease. CT does show pancreatitis but there is no evidence of choledocholithiasis, although ultrasound does reveal gallstones in the gallbladder. (2) Cholelithiasis: Code(s): K80.20 - Calculus of gallbladder without cholecystitis without obstruction Status: Acute Assessment and Plan: Surgery has seen him regarding cholelithiasis. He will need a cholecystectomy. We are awaiting results of his MRCP to determine whether he needs ERCP. (3) Transaminitis: Code(s): R74.01 - Elevation of levels of liver transaminase levels Status: Acute Assessment and Plan: His liver enzymes which were already high June 14 are higher today. His AST was 44 on May 22, 478 June 14 And 732. yesterday. he denies using alcohol. He does use methamphetamine frequently. He has never had hepatitis. There is no family history of liver disease. Plan If MRCP is negative then I think he is ready for cholecystectomy. We will need to continue to watch his liver enzymes as we do not know the precise reason for the elevations. Hepatitis serology has been ordered. GI Consult Note Consult date/time: 06/27/23 15:13 HPI: Jerod Pruett is a 27 year old male who presented to the emergency room with abdominal pain and nausea. He was found have a markedly elevated lipase. He actually has presented with this twice before, no ever and June 14. On both occasions he stayed less than 24 hours then left AMA. He has been found have gallstones. He denies using alcohol but admits to using methamphetamine regularly. CT scan did show pancreatitis and ultrasound revealed cholelithiasis. Common bile duct was not dilated. He had elevated bilirubin of 1.5 and when he presented here 2 weeks ago with pancreatitis he had a bilirubin of 2.8. I therefore have ordered MRCP to rule out choledocholithiasis. Review of Systems Review of Systems: All systems reviewed & are unremarkable except as noted in HPI and below PMFSH Past Medical History Medical History Appendicitis Methamphetamine use Pancreatitis Surgical History Surgical History History of laparoscopic appendectomy Family History Family History Mother Diabetes mellitus Social History Social History Smoking packs per day: 1 Smoking cigarettes per day: 20.0 Years smoked: 11 Smoking pack-years: 11.00 Smoking status: Current every day smoker Tobacco type: cigarettes Alcohol intake: never Substance use: never Lack of Transportation: YES Lack of Food: Never True Current Housing: I Have Housing Concerned About Future Housing: No Difficulty Paying Gas/Electric Bills: No Difficulty Paying for Meds: No Currently Unemployed: YES Education: High School Diploma/GED Difficulty w/ Childcare or Family Care: No Spiritual care concerns: No Meds Home Medications and Allergies Home Medications Medication Instructions Recorded Confirmed Type No Home Medications 05/22/23 06/26/23 History Allergies Allergy/AdvReac Type Severity Reaction Status Date / Time No Known Allergies Allergy Verified 06/26/23 09:03 Vital Signs Vital Signs - 24 hr 06/26/23 17:29 06/26/23 20:00 06/26/23 20:44 Temperature 36.7 C Pulse Rate 91 Respiratory Rate 18 Blood Pressure 137/57 L Pulse Oximetry 98 Oxygen Delivery Room Air Yazmin
--- NOTE | 2023-06-27 15:18 | PM.IMPN ---
Progress Note: A&P Assessment and Plan (1) Pancreatitis: Code(s): K85.90 - Acute pancreatitis without necrosis or infection, unspecified Status: Acute Assessment and Plan: NPO except for ice chips IV fluids D5 LR at [address] abdomen and pelvis showed acute uncomplicated pancreatitis MRCP ordered by GI showed acute pancreatitis lipase trending down to 1021 today (2) Cholelithiasis: Code(s): K80.20 - Calculus of gallbladder without cholecystitis without obstruction Status: Acute Assessment and Plan: RUQ US showed cholelithiasis GI consult General surgery consult (3) Transaminitis: Code(s): R74.01 - Elevation of levels of liver transaminase levels Status: Acute Assessment and Plan: Continue to trend Likely secondary to cholestasis (4) Tobacco dependence: Code(s): F17.200 - Nicotine dependence, unspecified, uncomplicated Status: Chronic Assessment and Plan: Nicotine patch ordered, deferred (5) Methamphetamine use: Code(s): F15.10 - Other stimulant abuse, uncomplicated Status: Chronic Assessment and Plan: Encouraged cessation Subjective Date/time seen: 06/27/23 15:18 Review of Systems Review of Systems: abdominal pain, n/v x 1 day, radiating to back Exam Narrative: Patient is lying in bed Const: General: comfortable, no acute distress, well developed, alert, awake and overweight Nutritional Appearance: overweight Orientation/consciousness: patient oriented x3 HENMT: Head: normal to inspection, normocephalic and atraumatic Ears: hearing grossly normal bilaterally Eyes: General: appearance normal, both eyes and all related structures Pupils: Equal, round and reactive pupils present EOM: EOMs intact bilaterally Neck: Neck: full ROM and no lymphadenopathy Thyroid: thyroid normal Lymphatic: no lymphadenopathy noted Resp: Effort & Inspection: normal respiratory effort and able to speak in complete sentences Auscultation: clear to auscultation bilaterally Cardio: Jugular venous distension: no JVD Rate: regular rate Rhythm: regular rhythm Heart sounds: S1 normal heart sound present and S2 normal heart sound present GI: Inspection: normal to inspection and no visible herniation GI Palp: Yes Soft to palpation Auscultation: normal bowel sounds Skin: Rashes: no rashes Wounds: no wounds Neuro: General: patient oriented x3, CN's II-XI intact bilaterally and Unable to assess gait Cranial nerves: Yes CN's II-XII intact bilaterally Cognition (Neuro): normal cognition Speech: normal speech Sensory Exam: normal sensation; No Sensory deficit (Neuro) Extrem: General: normal to inspection and no pedal edema Objective Data Vital Signs Vital Signs: Vital Signs - 24 hr 06/26/23 17:29 06/26/23 20:00 06/26/23 20:44 Temperature 98.1 F Pulse Rate 91 Respiratory Rate 18 Blood Pressure 137/57 L Pulse Oximetry 98 Oxygen Delivery Room Air Room Air 06/27/23 05:17 06/27/23 08:00 06/27/23 10:42 Temperature 98.1 F Pulse Rate 97 Respiratory Rate 18 Blood Pressure 120/64 Pulse Oximetry 98 Oxygen Delivery Room Air Room Air 06/27/23 13:00 Temperature 98.1 F Pulse Rate 98 Respiratory Rate 16 Blood Pressure 122/75 Pulse Oximetry 98 Oxygen Delivery Intake/Output Intake/Output: Intake & Output 06/24/23 06/25/23 06/26/23 06/27/23 23:59 23:59 23:59 23:59 Intake Total 3120 1050 Balance 3120 1050 Meds/Results Medications: Active Medications Generic Name Dose Route Start Last Admin Trade Name Freq PRN Reason Stop Dose Admin Hydromorphone HCl 0.5 mg 06/26/23 13:17 06/27/23 04:37 Hydromorphone Hcl Inj (*Crx) 1 Mg/Ml Syr IV PUSH 0.5 mg Q4H PRN Administration Pain Rated 7-10 Dextrose/Lactated Ringer's 1,000 mls @ 125 mls/hr 06/26/23 23:55 06/27/23 14:14 Dextrose 5%/Lactated Ringers IV CONT 125 mls/hr .Q8H [facility] Ad
[2023-06-27 19:34] VITALS: BP 121/53; PULSE 99; RESP 18; TEMP 36.4; O2SAT 96
[2023-06-28] MEDS: DEXTROSE 5%/LACTATED RINGERS 1,000 ML 125 ML IV CONT (01:14)
[2023-06-28 04:54] VITALS: BP 126/66; PULSE 85; RESP 18; TEMP 36.8; O2SAT 97
[2023-06-28 05:56] LABS: Hematocrit 44.2 % (42.0-52.0); Hemoglobin 14.4 g/dL (14.0-18.0); Mean Corpuscular HGB Conc 32.6 g/dl (32-36); Mean Corpuscular Hemoglobin 29.3 pg (26-34); Mean Platelet Volume 9.4 fl (7.4-10.4); Platelet Count Result 284 k/mm3 (150-375); Red Blood Count 4.91 M/mm3 (4.6-6.20); Red Cell Distribution Width 13.4 % (11.5-14.5); White Blood Count 7.4 K/mm3 (4.5-10.0)
[2023-06-28 06:08] LABS: Alanine Aminotransferase 208 U/L (6-50); Albumin Level 3.8 g/dL (3.5-5.1); Alkaline Phosphatase 100 U/L (38-126); Anion Gap 7 mmol/L (8-16); Aspartate Amino Transferase 43 U/L (17-59); Bilirubin,Total 0.6 mg/dL (0.2-1.3); Blood Urea Nitrogen 11 mg/dL (9-20); Carbon Dioxide 25 mmol/L (22-30); Chloride 107 mmol/L (98-107); Estimated CRCL calculation 206 ml/min; Estimated Glomerular Filt Rate > 60; Glucose 110 mg/dL (65-110); Lipase 447 U/L (23-300); Potassium 3.6 mmol/L (3.4-5.0); Sodium 139 mmol/L (137-145)
[2023-06-28 07:39] LABS: Hepatitis B Surface Antigen Negative (Negative)
[2023-06-28 07:45] LABS: HAV RESULT Negative (Negative); Hepatitis B Core IgM Result Negative (Negative)
[2023-06-28 07:57] LABS: Hepatitis C Virus Antibody Negative (Negative)
--- NOTE | 2023-06-28 10:30 | PM.PNGS ---
Progress Note: A&P Assessment and Plan (1) Transaminitis: Code(s): R74.01 - Elevation of levels of liver transaminase levels Status: Acute Assessment and Plan: Elevated liver enzymes are improving. Most back down to normal. (2) Cholelithiasis: Code(s): K80.20 - Calculus of gallbladder without cholecystitis without obstruction Status: Acute Assessment and Plan: Patient has residual cholelithiasis. Recommend elective laparoscopic cholecystectomy possible conversion open cholecystectomy perhaps next week. Seems to be that his pancreatitis is likely due to biliary origin and possibly passing gallstones. Patient wants to discharge home today and I think he can do that he tolerated a low-fat diet. Will arrange for interval short-term elective laparoscopic cholecystectomy possible conversion open cholecystectomy as an outpatient. Patient understands that my office will take contact him to schedule an operative date and time for laparoscopic cholecystectomy. (3) Pancreatitis: Code(s): K85.90 - Acute pancreatitis without necrosis or infection, unspecified Status: Acute Assessment and Plan: Improved. Lipase is normalized. Go ahead start a low-fat diet. Subjective Subjective Date/Time Seen: 06/28/23 10:30 Interval history: Patient feels better today. Minimal epigastric pain. He is hungry. MRCP yesterday showed no evidence of common bile duct stone. Gallstones were noted without evidence of acute cholecystitis. Liver enzymes are decreasing and lipase has normalized. Exam Const: General: comfortable and no acute distress Eyes: Sclera: sclerae normal Pupils: Equal, round and reactive pupils present Neck: Neck: supple and no JVD Resp: Effort & Inspection: normal respiratory effort Auscultation: clear to auscultation bilaterally Cardio: Rate: regular rate Rhythm: regular rhythm GI: Other: Abdomen is soft and nondistended. Minimal tenderness palpation epigastric region of the abdomen. No masses noted. Neuro: Speech: normal speech Motor exam (neuro): 5/5 motor strength present throughout Extrem: General: normal to inspection Psych: Mental Status: mental status grossly normal Affect: normal affect Objective Data Vital Signs Vital Signs: Vital Signs - 24 hr 06/27/23 10:42 06/27/23 13:00 06/27/23 19:34 Temperature 36.7 C 36.4 C Pulse Rate 98 99 Respiratory Rate 16 18 Blood Pressure 122/75 121/53 L Pulse Oximetry 98 96 Oxygen Delivery Room Air 06/27/23 20:30 06/28/23 04:54 06/28/23 08:25 Temperature 36.8 C Pulse Rate 85 Respiratory Rate 18 Blood Pressure 126/66 Pulse Oximetry 97 Oxygen Delivery Room Air Room Air Intake/Output Intake/Output: Intake & Output 06/25/23 06/26/23 06/27/23 06/28/23 23:59 23:59 23:59 23:59 Intake Total 3120 2110 90 Balance 3120 2110 90 Meds/Results Medications: Active Medications Generic Name Dose Route Start Last Admin Trade Name Freq PRN Reason Stop Dose Admin Nicotine 1 patch 06/27/23 09:00 06/28/23 08:21 Nicotine (*Pbkc) 21 Mg Patch TRANSDERM Not Given DAILY HILDA Ondansetron HCl 4 mg 06/26/23 13:17 Ondansetron Inj 4 Mg/2 Ml Vial IV PUSH Q4H PRN Nausea Oxycodone HCl 5 mg 06/28/23 09:28 Oxycodone Hcl (*Crx) 5 Mg Tab Ir PO Q4H PRN Pain Rated 7-10 Radiology Results: ITS Impressions Abdomen/Pelvis CT 06/26/23 10:07 IMPRESSION: 1. Acute uncomplicated pancreatitis. Abdomen Ultrasound 06/26/23 12:22 IMPRESSION: 1: Cholelithiasis. 2: Hepatic steatosis. MRCP 06/27/23 15:01 IMPRESSION: 1. Normal common duct. No choledocholithiasis. 2. Acute interstitial pancreatitis. 3. Cholelithiasis. 4. Small volume of ascites. 5. Diffuse hepatic steatosis. Labs Labs: Laboratory Results - last 24 hr 06/28/23 04:50 WBC 7.4 RBC 4.91 Hgb 14.4 Hct 44.2 MCV 90.0 MCH 29.3
--- NOTE | 2023-06-28 11:16 | PM.DS ---
DS: Admitting Diagnosis Discharge Date 06/28/23 Admitting Diagnosis acute pancreatitis DS: Discharge Diagnosis Discharge Diagnosis (1) Pancreatitis: Code(s): K85.90 - Acute pancreatitis without necrosis or infection, unspecified Status: Acute Assessment and Plan: Tolerating low fat diet Supportive care CT abdomen and pelvis showed acute uncomplicated pancreatitis MRCP ordered by GI showed acute pancreatitis lipase trending down to 447 today cleared by GI and general surgery for d/c today and f/u outpatient (2) Cholelithiasis: Code(s): K80.20 - Calculus of gallbladder without cholecystitis without obstruction Status: Acute Assessment and Plan: RUQ US showed cholelithiasis GI consult General surgery consulted, okay for d/c today and will follow up with Dr. Tee outpatient for procedure next week (3) Transaminitis: Code(s): R74.01 - Elevation of levels of liver transaminase levels Status: Acute Assessment and Plan: Likely secondary to cholestasis liver enzymes improving, 43/208 today hepatitis panel negative (4) Tobacco dependence: Code(s): F17.200 - Nicotine dependence, unspecified, uncomplicated Status: Chronic Assessment and Plan: Nicotine patch ordered, deferred encouraged smoking cessation (5) Methamphetamine use: Code(s): F15.10 - Other stimulant abuse, uncomplicated Status: Chronic Assessment and Plan: Encouraged cessation DS: Summary Hospital Course Hospital Course: Patient is a 27-year-old male with PMH of tobacco dependence, amphetamine use admitted from the emergency room due to sudden onset epigastric pain with radiation to the back with nausea vomiting unable to keep anything down had 10 episodes of vomiting x1 day duration. Imaging confirmed acute pancreatitis as well as cholelithiasis. GI and Gen surgery consulted and he is stable for d/c today and will follow up with surgery next week for outpatient procedure. He is tolerating a low fat diet, encouraged cessation of smoking and drug use. He is denying any abdominal pain this morning, had a small BM and his liver enzymes, lipase have improved. Status at Discharge Functional status at discharge: independent ambulation Overall status at discharge: patient is progressing back to baseline Time Spent with Patient Time attestation: Total time spent providing and/or coordinating discharge services: Exam Const: General: comfortable, no acute distress, well developed, alert, awake and overweight Nutritional Appearance: overweight Orientation/consciousness: patient oriented x3 HENMT: Head: normal to inspection, normocephalic and atraumatic Ears: TM's normal bilaterally Face/Nose/Sinus: normal facial exam Face and sinus: normal facial exam Eyes: General: appearance normal, both eyes and all related structures Pupils: Equal, round and reactive pupils present EOM: EOMs intact bilaterally Neck: Neck: full ROM, no lymphadenopathy and no JVD Thyroid: thyroid normal Lymphatic: no lymphadenopathy noted Resp: Effort & Inspection: normal respiratory effort and able to speak in complete sentences Auscultation: clear to auscultation bilaterally Cardio: Jugular venous distension: no JVD Rate: regular rate Rhythm: regular rhythm Heart sounds: S1 normal heart sound present and S2 normal heart sound present GI: Inspection: normal to inspection and no visible herniation Auscultation: normal bowel sounds Skin: Rashes: no rashes Wounds: no wounds Neuro: General: patient oriented x3, CN's II-XI intact bilaterally and Unable to assess gait Cranial nerves: Yes CN's II-XII intact bilaterally and Yes Equal, round and reactive pupils present Cognition (Neuro): normal cognition Speech: normal speech Motor exam (neuro): 5/5 motor strength present throughout Sensory Exam: normal sensation; No Sensory deficit (Neuro) Extrem: General: normal to inspection, full
== END 2023-06-28 11:23 | disposition home or self-care (01) | DRG 282 ==
LOC: ANHED 09:21 → ANH3MEDSUR 14:30 → ANH2MED 15:53
PROVIDERS: Nurse Practitioner Family; Admitting Provider Internal Medicine; Emergency Provider Emergency Medicine; Visit Provider Nurse Practitioner
DX: K85.10 Biliary acute pancreatitis without necrosis or infection (principal); K80.20 Calculus of gallbladder without cholecystitis without obstruction; F17.210 Nicotine dependence, cigarettes, uncomplicated; F15.10 Other stimulant abuse, uncomplicated; E66.3 Overweight; Z68.36 Body mass index [BMI] 36.0-36.9, adult
CPT/HCPCS: 36415; 74177; 74183; 76376; 76705; 80048; 80053; 80061; 80074; 80307; 81003; 82247; 82248; 83690; 85025; 85027; 85610; 85730; 96361; 96374; 96375; 96376; 99285; A9577; G0378; G0379; J1170; J2405; J7030; J7121; Q9967

== ENCOUNTER 2023-07-03 00:25 | Day surgery (SDC) | payer OTHER, SELFPAY ==
[2023-07-03] VITALS (11 sets, daily range): BP systolic 108–135; BP diastolic 48–71; PULSE 68–98; RESP 12–18; TEMP 36.8–37.2; O2SAT 100
--- NOTE | 2023-07-03 08:56 | P.PNAN_ITS ---
Anes - Initial Pre Proc Eval Procedure: Operation Date: 07/03/23 10:00 Proposed Procedures p Laparoscopic Cholecystectomy Possible Open - Himanshu Tee MD Date/Time: 07/03/23 08:56 Surgeon: Himanshu Tee MD Pre Op Diagnosis: acute gallstone pancreatitis Patient Data Age: 27 Gender: M Height: 1.96 m Weight: 134.6 kg Last Vital Signs Temp 36.8 C 07/03/23 08:20 Pulse 98 07/03/23 08:20 Resp 18 07/03/23 08:20 BP 135/71 07/03/23 08:20 Pulse Ox 100 07/03/23 08:20 O2 Del Method Room Air 07/03/23 08:20 Allergies Allergy/AdvReac Type Severity Reaction Status Date / Time No Known Allergies Allergy Verified 06/26/23 09:03 Home Medications Medication Instructions Recorded Confirmed Type No Home Medications 05/22/23 06/26/23 History oxycodone 5 mg capsule 5 mg PO Q6H PRN pain #8 caps 06/28/23 Rx Patient hx anesthesia problems: none Family hx anesthesia problems: none Results Review: All pre-operative results and documents have been reviewed as part of the pre- operative evaluation. [facility] Past Medical History Medical History Appendicitis Methamphetamine use Pancreatitis Surgical History Surgical History History of laparoscopic appendectomy Family History Family History Mother Diabetes mellitus Social History Social History Smoking packs per day: 1 Smoking cigarettes per day: 20.0 Years smoked: 11 Smoking pack-years: 11.00 Smoking status: Current every day smoker Tobacco type: cigarettes Alcohol intake: never Substance use: never Lack of Transportation: YES Lack of Food: Never True Current Housing: I Have Housing Concerned About Future Housing: No Difficulty Paying Gas/Electric Bills: No Difficulty Paying for Meds: No Currently Unemployed: YES Education: High School Diploma/GED Difficulty w/ Childcare or Family Care: No Spiritual care concerns: No Anes - Eval Final PreProcedure Day of Procedure 07/03/23 08:56 Patient weight: obese Heart: regular rate and rhythm Lungs: decreased breath sounds Airway: Mallampati scale class II Neurological: alert and oriented Last oral intake: >/= 8 hours ASA classification: III Emergent: no Anesthetic plan: proceed Anesthesia type and monitoring: general ETT and standard monitoring Results Review: All pre-operative results and documents have been reviewed as part of the pre- operative evaluation. Informed Consent: The patient's anesthetic plan and its attendant risks and benefits were discussed with the patient/family/POA. Questions were solicited and answers provided to the satisfaction of the patient/family/POA.
[2023-07-03] MEDS: LACTATED RINGERS 1,000 ML 30 ML IV CONT ×2 (09:00→11:13)
[2023-07-03] MEDS: KETOROLAC 15 MG/ML VIAL (*BKC) IV PUSH ×2 (09:02→10:56)
[2023-07-03] MEDS: ACETAMINOPHEN 500 MG TABLET 1000 MG PO (09:02)
[2023-07-03 09:28] LABS: Amylase 65 U/L (30-110)
--- NOTE | 2023-07-03 09:47 | WPDHPUPDATE1 ---
History and Physical Update Update Date/Time: 07/03/23 09:47 History and Physical has been reviewed, including an updated exam of the patient. There are NO changes in the patient's condition. Risks, benefits, and alternatives have been discussed and questions answered. Patient agrees to proceed with procedure.
[2023-07-03] MEDS: ceFAZolin 3 GM/D5W 100 ML 100 ML IVPB (09:57)
[2023-07-03] MEDS: LIDO 1%/EPINEPHRINE 1:100,000 20 ML VIAL 40 ML INFILTRATE (10:25)
--- NOTE | 2023-07-03 11:34 | W.PM.PROC2 ---
Procedure Note - Detailed Date of Procedure 07/03/23 Pre-op Diagnosis Recurrent acute pancreatitis likely due to biliary origin, cholelithiasis. Post-op Diagnosis Other (Chronic cholecystitis secondary to cholelithiasis, recent history of recurrent acute pancreatitis likely secondary to passage of common bile duct stones.) Procedure Performed Laparoscopic cholecystectomy Surgeon Himanshu Tee MD [employer] Elías SALAZARA Anesthesia General Indications Patient is a 47-year-old male who has had multiple admissions to the hospital for acute pancreatitis in last 2 months. He has known cholelithiasis but imaging studies have never demonstrated duct stones. He states that he has not had any alcohol use or any drug use and lab support this. He does have cholelithiasis on ultrasound and so presents now for a laparoscopic cholecystectomy. Findings The gallbladder had small gallstones within it. The gallbladder wall was mildly thickened with adhesions of the omentum to the gallbladder wall. There was no adhesions of duodenum or stomach to the gallbladder wall. The gallbladder was very intrahepatic. Description of Procedure After informed consent was obtained patient brought to the operating room placed supine position and general endotracheal anesthesia was administered. The abdomen was then prepped draped usual sterile fashion. A time-out was then performed correctly identifying the patient as well as procedure to be performed. He was given 3g of Ancef for perioperative IV antibiotics. I then started by placing a 5mm Optiview port in the left upper quadrant and entered the abdomen with a direct optical insertion. Once inside the abdomen insufflated to an adequate pneumoperitoneum of 15mmHg of CO2. After survey of the area around the umbilicus there is no evidence of any adhesions in this area. I then placed a 5mm periumbilical trocar port under direct visualization. Laparoscopic was then switched over to the periumbilical trocar port looking to the upper portion of the abdomen I cc the gallbladder was mildly thickened and mildly distended. There were some chronic adhesions of the omentum to the gallbladder wall but no adhesions of the bowel or stomach or duodenum. I then placed additional trocar ports included a 10mm epigastric trocar port and 2 right lateral subcostal 5mm trocar ports all under direct visualization. I then proceeded to strip down the omental adhesions of gallbladder wall bluntly. The gallbladder was held at the dome and elevated over the right have 3rd toes right shoulder. A 2nd grasper was then used to hold the gallbladder infundibulum. I then continued to dissect down along the infundibular gallbladder stripping away the visceroperitoneum and then identified the cystic duct. The cystic duct was then dissected out circumferentially. The cystic artery was identified and dissected out circumferentially as well. At this point I thought I had critical view. I then placed 2 clips proximal cystic duct and 2 clips distally high on the infundibulum of the gallbladder. Cystic duct was then divided with Endo Ariana. In a similar fashion cystic artery clipped and divided as well. The gallbladder was resected off the liver electrocautery. The gallbladder was very intrahepatic but I was able to do the dissection without spilling any bile or gallstones or causing any undue bleeding in the gallbladder bed. Was to go was free from the liver is placed into an Endo-Catch bag and brought out through the epigastric port site. Gallbladder with gallstones with her sent to pathology for examination. I then irrigated out the right upper quadrant the abdomen gallbladder fossa copious sterile saline solution. Hemostasis was excellent. There was no evidence of bile leak. I then aspirated the fluid from the right upper quadrant in the pelvis. I then removed all the trocar ports under visualization all port sites appeared hemostatic. I then allowed the a
[2023-07-03] MEDS: oxyCODONE HCL (*CRX) 5 MG TAB IR PO (13:49)
== END 2023-07-03 14:30 | disposition home or self-care (01) ==
PROVIDERS: Visit Provider Surgery
PROC: 0FT44ZZ Resection of Gallbladder, Percutaneous Endoscopic Approach (ICD-10-PCS; CPT 47562; principal; 2023-07-03 10:00)
DX: K80.10 Calculus of gallbladder with chronic cholecystitis without obstruction (principal); K85.90 Acute pancreatitis without necrosis or infection, unspecified; R74.01 Elevation of levels of liver transaminase levels; F17.210 Nicotine dependence, cigarettes, uncomplicated; F15.10 Other stimulant abuse, uncomplicated; E66.9 Obesity, unspecified; Z68.35 Body mass index [BMI] 35.0-35.9, adult
CPT/HCPCS: 47562; 36415; 82150; 86850; 86900; 86901; 88304; A9270; C1713; J0690; J1100; J1170; J1200; J1885; J2250; J2371; J2405; J2704; J3010; J7120